=== PATIENT | male | born 1985 | race Caucasian/White ===

== ENCOUNTER 2021-10-28 12:12 | Emergency (ER) | payer OTHER ==
[2021-10-28 12:55] VITALS: TEMP 98.7
--- NOTE | 2021-10-28 13:17 | XR ---
EXAMINATION TYPE: XR wrist complete RT DATE OF EXAM: 10/28/2021 COMPARISON: NONE HISTORY: Pain TECHNIQUE: Four views submitted. FINDINGS: The osseous structures are intact. The joint spaces are preserved and there is no acute fracture or dislocation. Chronic appearing deformity of the fourth metacarpal suggests remote fracture IMPRESSION: 1. No definite acute fracture or dislocation if symptoms persist, follow-up study in 7 to 10 days wo uld be suggested
[2021-10-28] MEDS ORDERED: IBUPROFEN 800 MG TAB PO STA (14:55)
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
[2021-10-28 15:21] VITALS: BP 124/78; PULSE 74; RESP 20
== END 2021-10-28 15:21 | disposition home or self-care (01) ==
LOC: EC 12:12
DX: S63.501A Unspecified sprain of right wrist, initial encounter (principal); F17.200 Nicotine dependence, unspecified, uncomplicated; W22.09XA Striking against other stationary object, initial encounter

== ENCOUNTER 2022-06-16 15:34 | Emergency (ER) | payer OTHER ==
[2022-06-16] MEDS ORDERED: DIPH,PERTUS(ACELL)TETVAC-LF 0.5 ML VIAL IM ONE (15:49)
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
[2022-06-16 16:03] LABS: Basophils % (A) 0 %; Eosinophils # (A) 0.1 k/uL (0-0.7); Eosinophils % (A) 1 %; HCT 45.2 % (39.0-53.0); HGB 15.2 gm/dL (13.0-17.5); Lymphocytes # (A) 2.4 k/uL (1.0-4.8); Lymphocytes % (A) 33 %; MCHC 33.6 g/dL (31.0-37.0); MCV 92.5 fL (80.0-100.0); Mean Platelet Volume 7.3; Monocytes # (A) 0.3 k/uL (0-1.0); Monocytes % (A) 4 %; Neutrophils # (A) 4.4 k/uL (1.3-7.7); Neutrophils % (A) 60 %; Platelet Count 233 k/uL (150-450); RBC 4.89 m/uL (4.30-5.90); RDW 12.7 % (11.5-15.5); WBC 7.4 k/uL (3.8-10.6)
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
[2022-06-16 16:12] LABS: Potassium 3.4 mmol/L (3.5-5.1)
[2022-06-16 16:13] LABS: ALT 32 U/L (4-49); AST 29 U/L (17-59); African American GFR (CKD) >90 (>60 ml/min/1.73 sqM); Albumin 4.2 g/dL (3.5-5.0); Alcohol 39 mg/dL; Alkaline Phosphatase 64 U/L (38-126); Anion Gap 12 mmol/L; Blood Urea Nitrogen 11 mg/dL (9-20); Calcium 9.1 mg/dL (8.4-10.2); Carbon Dioxide 20 mmol/L (22-30); Chloride 108 mmol/L (98-107); Glucose 116 mg/dL (74-99); Non-African American GFR(CKD) >90 (>60 ml/min/1.73 sqM); Sodium 140 mmol/L (137-145); Total Bilirubin 0.4 mg/dL (0.2-1.3); Total Protein 6.5 g/dL (6.3-8.2)
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
[2022-06-16 16:27] LABS: Partial Thromboplastin Time 22.4 sec (22.0-30.0); Prothrombin Time 10.3 sec (9.0-12.0)
[2022-06-16 16:48] VITALS: TEMP 98.3
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
[2022-06-16 17:53] VITALS: BP 136/93; PULSE 103; RESP 17
== END 2022-06-16 17:50 | disposition home or self-care (01) ==
LOC: EC 15:34
DX: S10.91XA Abrasion of unspecified part of neck, initial encounter (principal); F17.200 Nicotine dependence, unspecified, uncomplicated; Z23 Encounter for immunization; V89.2XXA Person injured in unspecified motor-vehicle accident, traffic, initial encounter
CPT/HCPCS: 36415; 70450; 71045; 72125; 72170; 80053; 80320; 84484; 85025; 85610; 85730; 86850; 86900; 86901; 90471; 90715; 93005; 99291